=== PATIENT | female | born 1945 | race Caucasian/White ===

== ENCOUNTER 2023-01-16 12:26 | Emergency (ER) | payer MEDICARE, SELFPAY ==
[2023-01-16] VITALS (33 sets, daily range): BP systolic 137–193; BP diastolic 50–78; PULSE 56–96; RESP 9–20; TEMP 36.6–36.7; O2SAT 92–100
--- NOTE | ~2023-01-16 | XR_ITS ---
EXAM: XR hip LT 1V DATE: 01/16/2023 16:24 HISTORY: prior reduction . COMPARISON: Same date at 12:44 PM. FINDINGS/IMPRESSION: Interval reduction appears to be successful, consider lateral view of the hip for confirmation if the re is persistent clinical concern for dislocation. Superior displacement of the femoral head component within the acetabular cup may indicate the presen ce of polyethylene wear/displacement. Persistent displacement of a ringlike arthroplasty component, p ossibly from the acetabular cup. Reviewed, dictated and finalized at location K.
--- NOTE | ~2023-01-16 | XR_ITS ---
EXAMINATION: XR hip LT 2V w AP pelvis DATE: 01/16/2023 12:51 INDICATION: Left hip dislocation post fall TECHNIQUE: Anteroposterior view of the pelvis and anteroposterior and cross-table lateral views of th e left hip were obtained. COMPARISON: None. FINDINGS: Bilateral noncemented total hip arthroplasties. There is anterior dislocation of the left hip. There is a ringlike component of the arthroplasty about the neck of the femoral component which is likely a lso displaced from the acetabular component. No fracture. Moderate bilateral sacroiliac osteoarthriti s. There is stenting of the bilateral common iliac arteries. IMPRESSION: 1. Bilateral total hip arthroplasties with anterior dislocation at the left hip arthroplasty Reviewed, dictated and finalized at location A.
[2023-01-16 12:41] LABS: Basophils Absolute Auto 0.2 K/mm3 (0.0-0.1); Basophils Percent Auto 1.9 % (0.2-1.2); Eosinophils Absolute Auto 0.4 K/mm3 (0-0.3); Eosinophils Percent Auto 5.2 % (0-4.4); Hematocrit 43.1 % (37.0-47.0); Hemoglobin 13.1 g/dL (12.0-15.0); Immature Granulocyte Absolute 0.02 K/mm3 (0.00-0.031); Immature Granulocyte Percent A 0.3 % (0-0.5); Lymphocytes Absolute Auto 1.74 K/mm3 (0.9-3.2); Lymphocytes Percent Auto 22.1 % (18.3-44.2); Mean Corpuscular HGB Conc 30.4 g/dl (32-36); Mean Corpuscular Hemoglobin 33.2 pg (26-34); Mean Corpuscular Volume 109.4 fl (80-100); Mean Platelet Volume 9.4 fl (7.4-10.4); Monocytes Absolute Auto 0.7 K/mm3 (0.1-0.6); Neutrophils Absolute Auto 4.8 K/mm3 (1.3-6.7); Neutrophils Percent Auto 61.5 % (45.5-73.1); Platelet Count Result 220 k/mm3 (150-375); Red Blood Count 3.94 M/mm3 (4.2-5.4); Red Cell Distribution Width 11.7 % (11.5-14.5); White Blood Count 7.9 K/mm3 (4.5-10.0)
--- NOTE | 2023-01-16 12:51 | ED.GENADULT ---
HPI - General Adult General Chief complaint: Unspecified <Avery Dallas PA-C - Last Filed: 01/16/23 18:46> Stated complaint: left hip dislo? <ESEQUIEL Kirk Last Filed: 01/16/23 18:46> Time Seen by Provider: 01/16/23 12:51 <Avery Dallas PA-C - Last Filed: 01/16/23 18:46> Source: patient <ESEQUIEL Kirk Last Filed: 01/16/23 18:46> Mode of arrival: EMS <ESEQUIEL Kirk Last Filed: 01/16/23 18:46> Limitations: no limitations <ESEQUIEL Kirk Last Filed: 01/16/23 18:46> History of Present Illness HPI narrative: This is a 77-year-old female with bilateral hip arthroplasties who presents to the ED via EMS with chief complaint of left hip pain following an injury this morning prior to arrival. Patient states that she was rolling over in bed to her and see how there is a large left side. She states when her right leg came over her left she felt a pop and sudden pain. She states it feels like it was dislocated which she states happened 4 months ago. Patient reports she has had both hips replace many years ago. She recently moved here from [place] to be closer to her daughter with her who has Alzheimer's. She states her surgeon is located in [place] but is unsure of their name. Denies any numbness or weakness. Denies any further site of pain or injury. Secondarily after being triage she reported to the nurse and myself that she is having a little bit of central midsternal chest pain. She states it is a 1 out of 10 and does not radiate. Denies any vomiting or LOC. Denies shortness of breath, leg swelling. Denies any cardiac history. <Avery Dallas PA-C - Last Filed: 01/16/23 18:46> Related Data Allergies/adverse reactions: Allergies Allergy/AdvReac Type Severity Reaction Status Date / Time Penicillins Allergy Rash Verified 01/16/23 15:46 <ESEQUIEL Kirk Last Filed: 08/14/23 18:46> Review of Systems Review of Systems: All systems as dictated in HPI <Avery Dallas PA-C - Last Filed: 01/16/23 18:46> Exam Narrative: GENERAL: Well-appearing, well-nourished, and in no acute distress. HEAD: Normocephalic, atraumatic. EYES: PERRLA and EOMI. ENT: Nares clear, no rhinorrhea or epistaxis. Mucous membranes moist. Oropharynx without tonsillar hypertrophy exudate or other lesions. NECK: Supple. No adenopathy or masses. CHEST: No respiratory distress. Clear to auscultation. No wheezes rales or rhonchi HEART: Regular rate and rhythm. No murmur heard. Normal peripheral pulses. ABDOMEN: Soft, nontender, nondistended, normal active bowel sounds. MSK: LLE: Limited range of motion of the left lower extremity due to pain. External rotation and shortening noted on exam. Neurovascular intact distally. RLE: Benign SKIN: Warm, dry, no rash. NEURO: Alert and oriented x3. No focal deficits. PSYCH: Normal mood and affect. <Avery Dallas PA-C - Last Filed: 01/16/23 18:46> Course BALL FRINGE MACHINE OPERATOR/PA Physician Supervision For this patient encounter, I reviewed the BALL FRINGE MACHINE OPERATOR or PA documentation, treatment plan, and medical decision making and I had [id number] time with this patient. I performed all aspects of the MDM as documented. 77-year-old female with an anterior dislocation of left prosthetic hip. Orthopedic surgery has been consulted and advises attempting bedside reduction. I performed the sedation. Hip was successfully reduced at bedside. Ortho advises discharge home and follow-up with orthopedics. <Dagmar Kirk MD - Last Filed: 01/17/23 21:07> Vital Signs Vital signs: Vital Signs Temperature 97.8 F 01/16/23 12:26 Pulse Rate 63 01/16/23 12:26 Respiratory Rate 20 01/16/23 12:26 Blood Pressure 187/66 H 01/16/23 12:26 Pulse Oximetry 99 01/16/23 12:26 Oxygen Delivery Room Air 01/16/23 12:26 Temperature 98.0 F 01/16/23 17:50 Pulse Rate 80 01/16/23 17:50 Respiratory Rate 16 01/16/23 17:50 Bloo
[2023-01-16 12:53] LABS: Alanine Aminotransferase 15 U/L (6-35); Albumin Level 3.8 g/dL (3.5-5.1); Alkaline Phosphatase 50 U/L (38-126); Anion Gap 8 mmol/L (8-16); Aspartate Amino Transferase 18 U/L (14-36); Bilirubin,Total 0.4 mg/dL (0.2-1.3); Blood Urea Nitrogen 20 mg/dL (7-17); Calcium 8.8 mg/dL (8.4-10.2); Carbon Dioxide 20 mmol/L (22-30); Chloride 105 mmol/L (98-107); Estimated Glomerular Filt Rate > 60; Glucose 73 mg/dL (65-110); Potassium 3.5 mmol/L (3.4-5.0); Sodium 133 mmol/L (137-145)
--- NOTE | 2023-01-16 13:20 | ECG_ITS ---
Measurements Intervals [place] Rate: 67 P: 60 MN: 177 QRS: 18 QRSD: 82 T: 25 QT: 398 QTc: 422 Interpretive Statements SINUS RHYTHM CANNOT RULE OUT PREVIOUS sEPTAL MYOCARDIAL INFARCTION BORDERLINE ECG NO PREVIOUS ECG AVAILABLE FOR COMPARISON Electronically Signed On 01-16-2023 17:13:06 CDT by Moe Young M.D.
[2023-01-16 14:31] LABS: Prothrombin Time 13.8 Seconds (11.1-14.7)
[2023-01-16 14:32] LABS: Partial Thromboplastin Time 34.6 SECONDS (22.3-36.8)
[2023-01-16 14:33] LABS: Troponin I < 0.012 ng/mL (0.000-0.034)
[2023-01-16] MEDS: SODIUM CHLORIDE 0.9% IV 1,000 ML 999 ML (15:57)
[2023-01-16] MEDS: PROPOFOL IV EMULSION 200 MG/20 ML VIAL 100 MG IV PUSH (16:00)
== END 2023-01-16 18:03 ==
PROVIDERS: Emergency Medicine; Emergency Provider Physician Assistant
DX: T84.021A Dislocation of internal left hip prosthesis, initial encounter (principal); R07.2 Precordial pain; Z96.643 Presence of artificial hip joint, bilateral; Y79.2 Prosthetic and other implants, materials and accessory orthopedic devices associated with adverse incidents; R94.31 Abnormal electrocardiogram [ECG] [EKG]
CPT/HCPCS: 27265; 36415; 73501; 73502; 80053; 84484; 85025; 85610; 85730; 93005; 99285; J2704; J7030

== ENCOUNTER 2023-01-28 15:09 | Emergency (ER) | payer MEDICARE, SELFPAY ==
--- NOTE | ~2023-01-28 | XR_ITS ---
XR chest 2V DATE: 01/28/2023 15:58 INDICATION: Vomiting. Foreign body sensation in throat. TECHNIQUE: 2 views COMPARISON: None FINDINGS: Heart size appears within upper limits of normal. There is thoracic and abdominal aortic ca lcification. No hilar or mediastinal enlargement is noted. There is mild infiltrate or atelectasis at the left lung base. Moderately large hiatal hernia with air-fluid levels. Small pleural effusions are suggested. No pulmonary vascular congestion or pneumothorax is noted. Osteopenia. A couple of fixation devices noted at the right humeral head. There is resection of the l ateral aspect of the right clavicle. Scoliosis of the thoracic and lumbar spine. Diffuse idiopathic skeletal hyperostosis of the thoracic spine and multilevel degenerative disc disease of the lumbar spine IMPRESSION: Mild infiltrate or atelectasis at the left lung base and possible small pleural effusions Moderately prominent hiatal hernia with air-fluid levels Aortic atherosclerosis Osteopenia Reviewed, dictated and finalized at location A. IMPRESSION: Mild infiltrate or atelectasis at the left lung base and possible s mall pleural effusions Moderately prominent hiatal hernia with air-fluid levels Aortic atherosclerosis Osteopenia
[2023-01-28 15:10] VITALS: BP 181/52; PULSE 68; TEMP 36.4; O2SAT 94
[2023-01-28 15:21] VITALS: BP 169/57; PULSE 64; RESP 18; O2SAT 94
--- NOTE | 2023-01-28 15:23 | ED.GENADULT ---
HPI - General Adult General Chief complaint: Skin/Abscess/Foreign Body Stated complaint: Food Bolus Time Seen by Provider: 01/28/23 15:21 History of Present Illness HPI narrative: Patient is a 77-year-old female here with foreign body sensation in her throat. She was discharged from [facility] this morning after a hospitalization for a hip surgery. patient was being discharged to a rehab facility today, in the car with her family on the way to the rehab facility in the [place] for [place] on the way there. She states that after a couple of bites she began having difficulty passing food and vomiting. She is able to tolerate her saliva but any time she attempts to swallow anything else she quickly vomits. No prior history of esophageal stricture, no prior upper endoscopy, no prior sensations of food getting stuck in the throat. Patient endorses some upper chest discomfort associated with the sensation. No cough, congestion, fever, chills. She is otherwise feeling well, notes she has been recovering well from her left hip surgery. Related Data Allergies Allergy/AdvReac Type Severity Reaction Status Date / Time iodine Allergy Rash Verified 01/28/23 15:15 Penicillins Allergy Rash Verified 01/28/23 15:15 Review of Systems Review of Systems: CONSTITUTIONAL: Denies fever, chills, or sweats. EYES: Denies visual changes, redness, or discharge. ENT: Denies rhinorrhea, congestion, sore throat, or otalgia. CARDIOVASCULAR: Chest pain, Denies palpitations, or edema. RESPIRATORY: Denies cough or dyspnea. GASTROINTESTINAL: Difficulty swallowing, vomiting. Denies abdominal pain, nausea, diarrhea. GENITOURINARY: Denies dysuria or hematuria. SKIN: Denies rash or itching. MUSCULOSKELETAL: Denies back pain, joint pain, or myalgia. Exam Narrative: GENERAL: Well-appearing, well-nourished, and in no acute distress. HEAD: Normocephalic, atraumatic. EYES: PERRLA and EOMI. ENT: Nares clear. Mucous membranes moist. NECK: Supple. CHEST: Clear to auscultation. No respiratory distress. HEART: Regular rate and rhythm. Normal peripheral pulses. ABDOMEN: Soft, nontender, nondistended. EXTREMITIES: Normal range of motion. No edema. SKIN: Warm, dry, no rash. NEURO: No focal deficits. Alert and oriented x3. PSYCH: Normal mood and affect. Course Course Emergency Course: Chart review performed. Patient here with esophageal foreign body. Last ED visit here 01/16/23 after a left hip prosthesis dislocation. Patient seen and evaluated. In no acute distress. No active vomiting. PO challenge with water unsuccessful. Will do basic lab work, CXR, cardiac workup given chest pain and age. We do not have EZ gas at our facility, will do glucagon with pepsi/coke and attempt to pass foreign body. No GI pumping station supervisor today. Patient will likely require transfer if unsuccessful. No success with passing foreign body with glucagon and carbonated beverage. Will await imaging/labs and work on transfer. Patient accepted for ED to ED transfer to [facility]. Accepting physician Dr. Trivedi. Vital Signs Vital signs: Vital Signs Temperature 97.6 F 01/28/23 15:10 Pulse Rate 68 01/28/23 15:10 Blood Pressure 181/52 H 01/28/23 15:10 Pulse Oximetry 94 01/28/23 15:10 Oxygen Delivery Room Air 01/28/23 15:10 Temperature 97.6 F 01/28/23 15:10 Pulse Rate 61 01/28/23 18:38 Respiratory Rate 20 01/28/23 18:38 Blood Pressure 102/53 L 01/28/23 18:38 Pulse Oximetry 96 01/28/23 18:38 Oxygen Delivery Room Air 01/28/23 15:10 Medical Decision Making Vital Signs Vital Signs: Vital Signs Temperature 97.6 F 01/28/23 15:10 Pulse Rate 68 01/28/23 15:10 Blood Pressure 181/52 H 01/28/23 15:10 Pulse Oximetry 94 01/28/23 15:10 Oxygen Delivery Room Air 01/28/23 15:10 Temperature 97.6 F 01/28/23 15:10 Pulse Rate 61 01/28/23 18:38 Respiratory Rate 20 01/28/23 18:38 Blood Pressure 102/53 L 01/28/23 18
[2023-01-28] MEDS: GLUCAGON FOR INJ 1 MG VIAL IV PUSH (16:13)
[2023-01-28 16:15] LABS: Basophils Absolute Auto 0.1 K/mm3 (0.0-0.1); Basophils Percent Auto 0.9 % (0.2-1.2); Eosinophils Absolute Auto 0.8 K/mm3 (0-0.3); Eosinophils Percent Auto 10.4 % (0-4.4); Hematocrit 37.1 % (37.0-47.0); Hemoglobin 12.2 g/dL (12.0-15.0); Immature Granulocyte Absolute 0.05 K/mm3 (0.00-0.031); Immature Granulocyte Percent A 0.7 % (0-0.5); Lymphocytes Absolute Auto 1.14 K/mm3 (0.9-3.2); Lymphocytes Percent Auto 15.2 % (18.3-44.2); Mean Corpuscular HGB Conc 32.9 g/dl (32-36); Mean Corpuscular Hemoglobin 33.9 pg (26-34); Mean Corpuscular Volume 103.1 fl (80-100); Mean Platelet Volume 9.6 fl (7.4-10.4); Monocytes Absolute Auto 0.6 K/mm3 (0.1-0.6); Monocytes Percent Auto 7.9 % (2.6-8.5); Neutrophils Absolute Auto 4.9 K/mm3 (1.3-6.7); Neutrophils Percent Auto 64.9 % (45.5-73.1); Platelet Count Result 304 k/mm3 (150-375); Red Cell Distribution Width 11.4 % (11.5-14.5); White Blood Count 7.5 K/mm3 (4.5-10.0)
[2023-01-28] MEDS: GLUCAGON FOR INJ 1 MG VIAL IM (16:17)
[2023-01-28 16:31] LABS: Alanine Aminotransferase 17 U/L (6-35); Albumin Level 3.8 g/dL (3.5-5.1); Alkaline Phosphatase 77 U/L (38-126); Anion Gap 7 mmol/L (8-16); Aspartate Amino Transferase 26 U/L (14-36); Bilirubin,Total 0.4 mg/dL (0.2-1.3); Blood Urea Nitrogen 24 mg/dL (7-17); Calcium 9.2 mg/dL (8.4-10.2); Carbon Dioxide 33 mmol/L (22-30); Chloride 94 mmol/L (98-107); Estimated CRCL calculation 47 ml/min; Estimated Glomerular Filt Rate > 60; Glucose 129 mg/dL (65-110); Lipase 40 U/L (23-300); Magnesium 1.7 mg/dL (1.6-2.3); Potassium 4.2 mmol/L (3.4-5.0); Sodium 134 mmol/L (137-145)
[2023-01-28 16:38] LABS: Troponin I < 0.012 ng/mL (0.000-0.034)
[2023-01-28 18:38] VITALS: BP 102/53; PULSE 61; RESP 20; O2SAT 96
== END 2023-01-28 19:50 | disposition short-term general hospital (02) ==
PROVIDERS: Emergency Provider Student in an Organized Health Care Education/Training Program
DX: T18.128A Food in esophagus causing other injury, initial encounter (principal)
CPT/HCPCS: 36415; 71046; 80053; 83690; 83735; 84484; 85025; 96372; 96374; 99285; J1610

== ENCOUNTER 2023-03-29 15:26 | Emergency (ER) | payer MEDICARE, SELFPAY ==
[2023-03-29 15:32] VITALS: BP 143/53; PULSE 62; RESP 20; TEMP 36.3; O2SAT 97
--- NOTE | 2023-03-29 15:55 | ED.FEMALEGU ---
HPI - Female Genitourinary General Chief complaint: Urogenital-Female Stated complaint: uti Time Seen by Provider: 03/29/23 15:38 History of Present Illness HPI Narrative: 77-year-old female presents to the emergency room for evaluation of dysuria and lower abdominal pain. [facility]. She had a urinalysis performed 4 days ago Related Data Allergies Allergy/AdvReac Type Severity Reaction Status Date / Time iodine Allergy Rash Verified 01/28/23 15:15 Penicillins Allergy Rash Verified 01/28/23 15:15 Review of Systems Review of Systems: CONSTITUTIONAL: Denies fever, chills, or sweats. EYES: Denies visual changes, redness, or discharge. ENT: Denies rhinorrhea, congestion, sore throat, or otalgia. CARDIOVASCULAR: Denies chest pain, palpitations, or edema. RESPIRATORY: Denies cough or dyspnea. GASTROINTESTINAL: Denies abdominal pain, nausea, vomiting, or diarrhea. GENITOURINARY: Reports dysuria SKIN: Denies rash or itching. MUSCULOSKELETAL: Denies back pain, joint pain, or myalgia. NEUROLOGIC: Denies headache, numbness, dizziness, or weakness. PSYCHIATRIC: Denies anxiety or depression. Exam Narrative: GENERAL: chronically ill-appearing, well-nourished, no physical limitations, and in no acute distress. HEAD: Normocephalic, atraumatic. EYES: Conjunctivae normal, PERRLA and EOMI. CHEST: Clear to auscultation. No respiratory distress. No wheezes rales or rhonchi. HEART: Regular rate and rhythm. No murmur heard. Normal peripheral pulses. ABDOMEN: Soft, nontender, nondistended, normal active bowel sounds. BACK: No CVA tenderness EXTREMITIES: Normal range of motion. No edema. No clubbing or cyanosis SKIN: Warm, dry, no rash. No noted wounds NEURO: No focal deficits. Alert and oriented x3. MAEW. CN's II-XI intact bilaterally, normal gait PSYCH: Cooperative. Normal mood and affect. Course Vital Signs Vital signs: Vital Signs Temperature 36.3 C L 03/29/23 15:32 Pulse Rate 62 03/29/23 15:32 Respiratory Rate 20 03/29/23 15:32 Blood Pressure 143/53 H 03/29/23 15:32 Pulse Oximetry 97 03/29/23 15:32 Temperature 36.3 C L 03/29/23 15:32 Pulse Rate 62 03/29/23 15:32 Respiratory Rate 20 03/29/23 15:32 Blood Pressure 143/53 H 03/29/23 15:32 Pulse Oximetry 97 03/29/23 15:32 MDM - Female Genitourinary Lab Data Labs: Lab Results 03/29/23 Range/Units 15:59 Urine Color Dark yellow (Yellow) Urine Appearance Cloudy H (Clear) Urine pH 5.5 (5.0-9.0) Ur Specific [place] 1.036 H (1.001-1.035) Urine Protein 1+ H (Negative) mg/dL Urine Glucose (UA) Negative (Negative) mg/dL Urine Ketones Trace H (Negative) mg/dL Ur Blood (Man) Negative (Negative) Urine Nitrate Negative (Negative) Urine Bilirubin Negative (Negative) Urine Urobilinogen 1.0 (<2.0) mg/dL Add Ur Microanalysis Reviewed Leukocyte Esterase Rfl 1+ H (Negative) KATY/UL Urine RBC 6-10 H (0-2) /hpf Urine WBC 21-50 H /hpf Ur Squamous Epith Cells Many H (Few) /hpf Urine Bacteria 4+ H /hpf Urine Casts 3-5 Discharge Plan Discharge Clinical Impression: Urinary tract infection Patient Disposition: Home, Self-Care Condition: Stable Instructions: Antibiotic Form Prescriptions: New sulfamethoxazole-trimethoprim [Bactrim DS] 800-160 mg tablet 1 tablet PO Q12H Qty: 14 0RF Follow-up/Referrals: PHYSICIAN NOT ON STAFF,NONSTAFF [Non-Staff] - Time of Disposition: 16:23
[2023-03-29 16:19] LABS: Appearance Urine Cloudy (Clear); Bacteria Urine 4+ /hpf; Bilirubin Urine Negative (Negative); Blood Urine Negative (Negative); Color Urine Dark Yellow (Yellow); Glucose Urine UA Negative (Negative); Ketones Urine Trace mg/dL (Negative); Leukocyte Esterase Ur 1+ LEU/UL (Negative); Need Manual Microscopic Reviewed; Nitrate Urine Negative (Negative); Protein Urine 1+ mg/dL (Negative); Specific Grav Ur 1.036 (1.001-1.035); Squamous Epithelial Cell Urine Many /hpf (Few); WBC Urine 21-50 /hpf; pH Urine 5.5 (5.0-9.0)
[2023-03-29 16:20] LABS: Add Urine Microscopic? YES
[2023-03-29 17:11] LABS: Alanine Aminotransferase 22 U/L (6-35); Alkaline Phosphatase 61 U/L (38-126); Anion Gap 5 mmol/L (8-16); Aspartate Amino Transferase 18 U/L (14-36); Bilirubin,Total 0.4 mg/dL (0.2-1.3); Blood Urea Nitrogen 22 mg/dL (7-17); Carbon Dioxide 24 mmol/L (22-30); Chloride 107 mmol/L (98-107); Estimated CRCL calculation 43 ml/min; Estimated Glomerular Filt Rate > 60; Glucose 109 mg/dL (65-110); Potassium 4.4 mmol/L (3.4-5.0); Sodium 136 mmol/L (137-145)
--- NOTE | 2023-03-29 17:15 | ED.FEMALEGU ---
HPI - Female Genitourinary General Chief complaint: Urogenital-Female Stated complaint: uti Time Seen by Provider: 03/29/23 15:38 Related Data Allergies Allergy/AdvReac Type Severity Reaction Status Date / Time iodine Allergy Rash Verified 01/28/23 15:15 Penicillins Allergy Rash Verified 01/28/23 15:15 Course Vital Signs Vital signs: Vital Signs Temperature 36.3 C L 03/29/23 15:32 Pulse Rate 62 03/29/23 15:32 Respiratory Rate 20 03/29/23 15:32 Blood Pressure 143/53 H 03/29/23 15:32 Pulse Oximetry 97 03/29/23 15:32 Temperature 36.3 C L 03/29/23 15:32 Pulse Rate 62 03/29/23 15:32 Respiratory Rate 20 03/29/23 15:32 Blood Pressure 143/53 H 03/29/23 15:32 Pulse Oximetry 97 03/29/23 15:32 MDM - Female Genitourinary Lab Data 03/29/23 16:52 Labs: Lab Results 03/29/23 03/29/23 Range/Units 15:59 16:52 Sodium 136 L (137-145) mmol/L Potassium 4.4 (3.4-5.0) mmol/L Chloride 107 (98-107) mmol/L Carbon Dioxide 24 (22-30) mmol/L Anion Gap 5 L (8-16) mmol/L BUN 22 H (7-17) mg/dL Creatinine 0.70 (0.7-1.0) mg/dL Estim Creat Clear Calc 43 ml/min Estimated GFR > 60 (59 - ) Glucose 109 (65-110) mg/dL Calcium 9.0 (8.4-10.2) mg/dL Total Bilirubin 0.4 (0.2-1.3) mg/dL AST 18 (14-36) U/L ALT 22 (6-35) U/L Alkaline Phosphatase 61 (38-126) U/L Total Protein 7.0 (6.3-8.2) g/dL Albumin 4.0 (3.5-5.1) g/dL Urine Color Dark yellow (Yellow) Urine Appearance Cloudy H (Clear) Urine pH 5.5 (5.0-9.0) Ur Specific [place] 1.036 H (1.001-1.035) Urine Protein 1+ H (Negative) mg/dL Urine Glucose (UA) Negative (Negative) mg/dL Urine Ketones Trace H (Negative) mg/dL Ur Blood (Man) Negative (Negative) Urine Nitrate Negative (Negative) Urine Bilirubin Negative (Negative) Urine Urobilinogen 1.0 (<2.0) mg/dL Add Ur Microanalysis Reviewed Leukocyte Esterase Rfl 1+ H (Negative) KATY/UL Urine RBC 6-10 H (0-2) /hpf Urine WBC 21-50 H /hpf Ur Squamous Epith Cells Many H (Few) /hpf Urine Bacteria 4+ H /hpf Urine Casts 3-5 Discharge Plan Discharge Clinical Impression: Urinary tract infection Patient Disposition: Home, Self-Care Condition: Stable Instructions: Antibiotic Form Prescriptions: New sulfamethoxazole-trimethoprim [Bactrim DS] 800-160 mg tablet 1 tablet PO Q12H Qty: 14 0RF levofloxacin 750 mg tablet 750 mg PO DAILY Qty: 7 0RF Follow-up/Referrals: PHYSICIAN NOT ON STAFF,NONSTAFF [Non-Staff] - Time of Disposition: 16:23
== END 2023-03-29 17:46 ==
PROVIDERS: Emergency Provider Nurse Practitioner Family
DX: N39.0 Urinary tract infection, site not specified (principal)
CPT/HCPCS: 36415; 80053; 81001; 87086; 87088; 99283

== ENCOUNTER 2024-05-24 15:16 | Emergency (ER) | payer MEDICARE, SELFPAY ==
--- NOTE | ~2024-05-24 | CT_ITS ---
EXAMINATION: CT cervical spine wo con DATE: 05/24/2024 16:04 INDICATION: Fall with head injury TECHNIQUE: Computed tomography (CT) of the cervical spine was performed without intravenous contrast. Automated exposure control and iterative reconstruction technique were employed. The dose-length pro duct was 221.74 mGy-cm. COMPARISON: None FINDINGS: Severe osteoarthritis at the atlantoaxial articulation. 2 mm anterolisthesis C5 on C6 and 1 mm queta listhesis T1 on T2. Vertebral body heights are normal. No fracture. Moderate disc height loss with mo derate to severe uncovertebral osteoarthritis at C6-C7 and mild disc height loss and mild uncovertebr al osteoarthritis at C5-C6. Moderate uncovertebral osteoarthritis on the right at C4-C5 with mild unc overtebral osteoarthritis the remainder of the dressing spine. Severe multilevel bilateral cervical f acet osteoarthritis with fusion of the bilateral C2-C3 facet joints. Small posterior disc osteophyte complex resulting in mild central canal stenosis at C6-C7. There is moderate neural foraminal stenosi s on the right at C3-C4 and bilaterally at C4-C5. Mild neural from stenosis at a few additional cervi rayray levels on the left and right. Atherosclerotic calcifications at the aortic arch and the great ves sels arising from the arch including at the bilateral carotid bulbs. A couple likely benign thyroid n odules the largest on the right measuring 1 cm. Visualized apices of lungs are clear. IMPRESSION: 1. Moderate cervical spondylosis with multilevel severe bilateral facet osteoarthritis. No acute osse ous abnormality. Reviewed, dictated and finalized at location A. INE REPAIRER MAINTENANCE IMPRESSION: 1. Moderate cervical spondylosis with multilevel severe bilateral facet osteoar thritis. No acute osseous abnormality.
--- NOTE | ~2024-05-24 | CT_ITS ---
EXAMINATION: CT brain wo con DATE: 05/24/2024 16:04 INDICATION: Head trauma post fall TECHNIQUE: Computed tomography (CT) of the head was performed without intravenous contrast. Sagittal and coronal reconstructions were performed. The mA was adjusted according to patient size. Iterative reconstruction technique was employed. The dose-length product was 681.00 mGy-cm. COMPARISON: None FINDINGS: No fracture. No acute intracranial hemorrhage, acute infarction or abnormal extra axial fluid collect ion. There is mild scattered white matter hypoattenuation consistent with chronic small vessel ischem ic disease. Symmetric prominence of the sulci and subarachnoid spaces overlying the convexities consi stent with moderate age-appropriate diffuse cerebral volume loss. Ventricles are normal and symmetric . No mass/mass effect. Changes of bilateral intraocular lens replacement. The orbits, paranasal sinus es and mastoid air cells are normal. IMPRESSION: 1. No fracture or acute intracranial process. 2. Age-related changes including moderate diffuse volume loss and mild scattered white matter hypoatt enuation consistent with chronic small vessel ischemic disease. Reviewed, dictated and finalized at location A. EQUIN MOLDER IMPRESSION: 1. No fracture or acute intracranial process. 2. Age-related changes including moderate diffuse volume loss and mild scattere d white matter hypoattenuation consistent with chronic small vessel ischemic di sease.
[2024-05-24 15:25] VITALS: BP 154/74; PULSE 90; RESP 20; TEMP 36.8; O2SAT 96
[2024-05-24 16:34] VITALS: BP 186/60; PULSE 86; RESP 16; TEMP 36.9; O2SAT 100
--- NOTE | 2024-05-24 16:36 | ED.GENADULT ---
HPI - General Adult General Chief complaint: Fall Stated complaint: FALL Time Seen by Provider: 05/24/24 15:29 History of Present Illness HPI narrative: 78-year-old female present to the emergency department for evaluation after having a ground level fall. Patient states she was outside and tripped over a rock and struck her head on concrete. Patient denies any loss consciousness but states she did strike her head. Patient denies any neck or back pain. Patient denies any other pain or injury. Related Data Allergies Allergy/AdvReac Type Severity Reaction Status Date / Time iodine Allergy Rash Verified 01/28/23 15:15 Penicillins Allergy Rash Verified 01/28/23 15:15 Review of Systems Review of Systems: All systems reviewed & are unremarkable except as noted in HPI and below Exam Narrative: APPEARANCE: Well appearing, no pain, no distress, well-nourished. HEAD: normocephalic, atraumatic. EYES: PERRLA/EOMI, conjunctivae clear. NOSE: Normal no drainage EARS:TMS clear with good light reflex. THROAT: Pharynx clear, no exudate. NECK: Supple. No adenopathy, no masses. RESPIRATORY: Airway patent, respirations nonlabored. Clear to auscultation bilaterally, no rales, rhonchi, wheezing. CARDIOVASCULAR: Regular rate and rhythm without murmurs rubs or gallops. ABDOMINAL: Soft, nontender, nondistended, normal bowel sounds MUSCULOSKELETAL: Moves all extremities. Strength/ROM intact, No edema, No calf tenderness. NEURO: Alert. Cranial nerves II through XII intact. Good gait. Good coordination SKIN: Warm, dry. Normal Color Course Vital Signs Vital signs: Vital Signs Temperature 98.3 F 05/24/24 15:25 Pulse Rate 90 05/24/24 15:25 Respiratory Rate 20 05/24/24 15:25 Blood Pressure 154/74 H 05/24/24 15:25 Pulse Oximetry 96 05/24/24 15:25 Oxygen Delivery Room Air 05/24/24 15:25 Temperature 98.4 F 05/24/24 16:34 Pulse Rate 95 05/24/24 17:19 Respiratory Rate 16 05/24/24 17:19 Blood Pressure 150/72 H 05/24/24 17:19 Pulse Oximetry 96 05/24/24 17:19 Oxygen Delivery Room Air 12/20/24 15:25 Medical Decision Making MDM Narrative Medical decision making narrative: 78-year-old female presenting to the emergency department for evaluation after having a head injury. Patient's head and cervical spine CTs were negative. Patient denies any other pain complaints. Patient states this was a mechanical call that caused her to fall. Patient denies any recent illnesses coughs colds or fevers. Patient is well-appearing at time of discharge. Differential Diagnosis Differential Diagnosis: subdural hematoma, subarachnoid hemorrhage, skull fracture, cervical spine fracture Vital Signs Vital Signs: Vital Signs Temperature 98.3 F 05/24/24 15:25 Pulse Rate 90 05/24/24 15:25 Respiratory Rate 20 05/24/24 15:25 Blood Pressure 154/74 H 05/24/24 15:25 Pulse Oximetry 96 05/24/24 15:25 Oxygen Delivery Room Air 05/24/24 15:25 Temperature 98.4 F 05/24/24 16:34 Pulse Rate 95 05/24/24 17:19 Respiratory Rate 16 05/24/24 17:19 Blood Pressure 150/72 H 05/24/24 17:19 Pulse Oximetry 96 05/24/24 17:19 Oxygen Delivery Room Air 05/24/24 15:25 Discharge Plan Discharge Clinical Impression: Head injury Patient Disposition: NH Usp/Asst Living Condition: Stable Instructions: Antibiotic Form, Head Injury (ED) Additional Instructions: Head injury guidelines. Have close follow-up with your primary care physician. If you have any worsening symptoms then please call or return to the emergency department. Patient Language: Omani Prescriptions: No Action sulfamethoxazole-trimethoprim [Bactrim DS] 800-160 mg tablet 1 tablet PO Q12H Qty: 14 0RF levofloxacin 750 mg tablet 750 mg PO DAILY Qty: 7 0RF Follow-up/Referrals: polly gifford [Other]
--- NOTE | 2024-05-24 17:07 | PC.NURSE ---
Report called to HANK Mora at [facility]. All questions answered. Daughter at bedside and to take pt. via private vehicle back to [facility].
[2024-05-24 17:19] VITALS: BP 150/72; PULSE 95; RESP 16; O2SAT 96
== END 2024-05-24 17:21 ==
PROVIDERS: Emergency Provider Emergency Medicine
DX: S09.90XA Unspecified injury of head, initial encounter (principal); W18.09XA Striking against other object with subsequent fall, initial encounter
CPT/HCPCS: 70450; 72125; 99284